=== PATIENT | female | born 1995 | race American Indian/Alaskan Native ===

== ENCOUNTER 2017-12-24 10:22 | Emergency (ER) | payer SELFPAY ==
[2017-12-24 12:52] LABS: Bacteria,Urine 2+ /HPF (Negative); Bilirubin,Urine NEG (Negative); Blood,Urine NEG (Negative); Color,Urine Yellow (Yellow); Mucus,Urine FEW /HPF; Nitrite,Urine NEG (Negative); Protein,Urine <15 mg/dL mg/dL (Negative); Urobilinogen,Urine < 2.0 mg/dL (<2.0)
--- NOTE | 2017-12-24 15:53 | Emergency Department Report ---
ED General Adult HPI - General Chief complaint: Back Pain/Injury Stated complaint: LOW BACK PAIN Time Seen by Provider: 12/24/17 15:47 Source: patient Mode of arrival: Ambulatory Limitations: No Limitations - History of Present Illness Initial comments: Patient's 22-year-old -Polish female 17 weeks presents for right flank pain with mild dysuria past 3-4 days there is no abdominal pain and cramping or vaginal bleeding no vaginal discharge no rash or lesions no open sores no nausea vomiting no fever or chills. 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 ) Treatments Prior to Arrival: none - Related Data Previous Rx's Medication Instructions Recorded Last Taken Type Acetaminophen 650 mg PO QID PRN #60 tablet 12/24/17 Unknown Rx Cephalexin [Keflex] 500 mg PO BID #14 capsule 12/24/17 Unknown Rx Allergies Allergy/AdvReac Type Severity Reaction Status Date / Time No Known Allergies Allergy Unverified 12/24/17 11:03 ED Review of Systems ROS: Stated complaint: LOW BACK PAIN Other details as noted in HPI Constitutional: denies: chills, fever Eyes: denies: eye pain, eye discharge, vision change ENT: denies: ear pain, throat pain Respiratory: denies: cough, shortness of breath, wheezing Cardiovascular: denies: chest pain, palpitations Endocrine: no symptoms reported Gastrointestinal: denies: abdominal pain, nausea, diarrhea Genitourinary: denies: urgency, dysuria, frequency, hematuria, discharge, abnormal menses, dyspareunia Musculoskeletal: back pain. denies: joint swelling, arthralgia Skin: denies: rash, lesions Neurological: denies: headache, weakness, paresthesias Psychiatric: denies: anxiety, depression Hematological/Lymphatic: denies: easy bleeding, easy bruising ED Past Medical Hx - Past Medical History Previous Medical History?: Yes - Surgical History Past Surgical History?: No - Social History Smoking Status: Never Smoker Substance Use Type: Prescribed - Medications Home Medications: Home Medications Medication Instructions Recorded Confirmed Last Taken Type Acetaminophen 650 mg PO QID PRN #60 tablet 12/24/17 Unknown Rx Cephalexin [Keflex] 500 mg PO BID #14 capsule 12/24/17 Unknown Rx ED Physical Exam - General Limitations: No Limitations General appearance: alert, in no apparent distress - Head Head exam: Present: atraumatic, normocephalic - Eye Eye exam: Present: normal appearance - ENT ENT exam: Present: mucous membranes moist - Neck Neck exam: Present: normal inspection, full ROM. Absent: lymphadenopathy, thyromegaly - Respiratory Respiratory exam: Present: normal lung sounds bilaterally. Absent: respiratory distress, wheezes, rales, rhonchi, chest wall tenderness - Cardiovascular Cardiovascular Exam: Present: regular rate, normal rhythm. Absent: systolic murmur, diastolic murmur, rubs, gallop - GI/Abdominal GI/Abdominal exam: Present: soft, normal bowel sounds. Absent: distended, tenderness, guarding, rebound, rigid, organomegaly, mass, bruit, pulsatile mass , hernia - Rectal Rectal exam: Present: deferred - Extremities Exam Extremities exam: Present: normal inspection, full ROM, normal capillary refill. Absent: tenderness, pedal edema, joint swelling, calf tenderness - Back Exam Back exam: Present: normal inspection, full ROM, CVA tenderness (R). Absent: CVA tenderness (L), muscle spasm, paraspinal tenderness, vertebral tenderness, rash noted - Neurological Exam Neurological exam: Present: alert, oriented X3, CN II-XII intact, normal gait, reflexes normal. Absent: motor sensory deficit - Psychiatric Psychiatric exam: Present: normal affect, normal mood - Skin Skin exam: Present: warm, dry, intact, normal color. Absent: rash ED Course Vital Signs 12/24/17 11:03 Temperature 98.5 F Pulse Rate 62 Respiratory 18 Rate Blood Pressure 121/85 O2 Sat by Pulse 94 Oximetry ED Medical Decision Making - Lab Data Laboratory Tests 12/24/17 12:13 Urine Color Yellow Urine Turbidity Clear Urine pH 7.0 Ur Specific [place] 1.015 Urine Protein <15 mg/dl Urine Glucose (UA) Neg Urine Ketones Tr Urine Blood Neg Urine Nitrite Neg Urine Bilirubin Neg Urine Urobilinogen < 2.0 Ur Leukocyte Esterase Lg Urine WBC (Auto) 10.0 H Urine RBC (Auto) 3.0 U Epithel Cells (Auto) 46.0 H Urine Bacteria (Auto) 2+ Urine Mucus Few - Medical Decision Making UA positive leukocytes white blood cells no blood mild right CVA tenderness patient denies vaginal discharge no bleeding no abdominal pain or cramping no nausea vomiting plan treat for UTI Keflex by mouth twice a day for 7 days follow with PUBLIC HEALTH TEACHER in 5 days as scheduled return to ED if abdominal pain cramping or worsening symptoms patient hasn't verbalized understanding and agreeable with discharge plan is to DC to home in stable condition at this time. Critical care attestation.: If time is entered above; I have spent that time in minutes in the direct care of this critically ill patient, excluding procedure time. ED Disposition Clinical Impression: UTI (urinary tract infection) during Qualifiers: Trimester: second trimester Qualified Code(s): O23.42 - Unspecified infection of urinary tract in , second trimester Disposition: DC-01 TO HOME OR SELFCARE Is pt being admited?: No Does the pt Need Aspirin: No Condition: Good Instructions: Urinary Tract Infection in Women (ED) Prescriptions: Acetaminophen 650 mg PO QID PRN #60 tablet PRN Reason: Pain Cephalexin [Keflex] 500 mg PO BID #14 capsule Referrals: LIVE MACHUCA MD [Primary Care Provider] - 3-5 Days Forms: Work/School Release Form(ED) Time of Disposition: 15:55
[2017-12-24 16:27] VITALS: BP 120/76
== END 2017-12-24 16:26 | disposition home or self-care (01) ==
LOC: ED 10:22
DX: O23.42 Unspecified infection of urinary tract in pregnancy, second trimester (principal); Z3A.17 17 weeks gestation of pregnancy
CPT/HCPCS: 81001; 99283

== ENCOUNTER 2018-05-13 01:13 | Outpatient (CLI) | payer BC ==
[2018-05-13 01:33] VITALS: BP 121/77
[2018-05-13] MEDS ORDERED: VISTARIL PO PRN (02:01)
== END 2018-05-13 02:15 | disposition home or self-care (01) ==
LOC: TRG 01:13
PROVIDERS: ATTEND Obstetrics & Gynecology
DX: O26.893 Other specified pregnancy related conditions, third trimester (principal); Z3A.39 39 weeks gestation of pregnancy
CPT/HCPCS: 59025

== ENCOUNTER 2018-05-19 09:57 | Inpatient (IN) | payer BC ==
[2018-05-19] MEDS ORDERED: LACTATED RINGERS 1,000 ML IV ONE (11:19)
[2018-05-19] MEDS ORDERED: BRETHINE SUB-Q PRN (12:36)
[2018-05-19] MEDS ORDERED: SUBLIMAZE IV PRN (12:36)
[2018-05-19] MEDS ORDERED: ZOFRAN IV PRN (12:36)
[2018-05-19] MEDS ORDERED: MINERAL OIL PO PRN (12:36)
[2018-05-19] MEDS ORDERED: XYLOCAINE 2% INFILTRATI ONE (12:36)
[2018-05-19] MEDS ORDERED: ePHEDrine SULFATE IV PRN (12:36)
[2018-05-19] MEDS ORDERED: POLYCILLIN/NS 2 GM/100 ML 2 GM/100 ML BAG IV ONE (12:40)
--- NOTE | 2018-05-19 12:48 | History and Physical Report ---
History of Present Illness Date of examination: 05/19/18 (pt presented to [facility] with c/o low back pain and DFM) History of present illness: EDC Confirmation: 05/20/2018 Gestational Age: 13 3/7 weeks Past History : 2 Term Births: 0 Premature Births: 0 Living Children: 0 Para: 0 Mult. Births: 0 Prev : 0 Prev. attempt? 0 Aborta: 1 Elect. Ab: 0 Spont. Ab: 1 Ectopics: 0 # 1 Delivery date: 03/2016 Weeks Gestation: 6 Delivery type: SAB Comments: No D&C Past Medical History: Negative Past Medical History Past Surgical History: Negative Past Surgical History Family History Summary: Other family member - Has No Family History of Ovarvian Cancer - Entered On: Other family member - Has Family History of Hypertension - Entered On: 2016 Other family member - Has Family History of Diabetes - Entered On: 11/15/2017 Other family member - Has Family History Colon Cancer - Entered On: 11/15/2017 Other family member - Has Family History Breast Cancer - Entered On: 11/15/2017 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 of genital herpes: no Partner hx. of genital herpes: no Genetic History Congenital Heart Defect: Mom: no Dad: no Giuliano Disease: Mom: no Dad: no Thalassemia Mom: no Dad: no Neural Tube Defect Mom: no Dad: no Down's Syndrome Mom: no Dad: no Jose F-Sachs Mom: no Dad: no Sickle Cell Disease/Trait Mom: no Dad: no Hemophilia Mom: no Dad: no Muscular Dystrophy Mom: no Dad: no Cystic Fibrosis Mom: no Dad: no [place] Chorea Mom: no Dad: no Mental Retardation Mom: no Dad: no Fragile X Mom: no Dad: no Other Genetic/Chromosomal Disorder Mom: no Dad: no Child w/other defect Mom: no Dad: no Active Medications (reviewed today): None Current Allergies (reviewed today): No known allergies Past History - Obstetrical History Expected Date of Delivery: 05/20/18 Actual Gestation: 39 Week(s) 6 Day(s) : 2 Para: 0 Hx # Term Pregnancies: 0 Number of Pregnancies: 0 Spontaneous Abortions: 1 Induced : 0 Number of Living Children: 0 Medications and Allergies Allergies Allergy/AdvReac Type Severity Reaction Status Date / Time No Known Allergies Allergy Unverified 12/24/17 11:03 Home Medications Medication Instructions Recorded Confirmed Last Taken Type Cephalexin [Keflex] 500 mg PO BID #14 capsule 12/24/17 Unknown Rx RX: Acetaminophen 650 mg PO QID PRN #60 tablet 12/24/17 Unknown Rx - Vital Signs Vital signs: Vital Signs Pulse Pulse Ox 75 99 05/19/18 10:34 05/19/18 10:34 Temp Pulse Resp BP Pulse Ox 75 119/79 100 05/19/18 12:44 05/19/18 10:35 05/19/18 12:44 - Physical Exam Breasts: Positive: deferred Cardiovascular: Regular rate, Normal S1, Normal S2 Lungs: Positive: Normal air movement Abdomen: Positive: normal appearance, soft, normal bowel sounds. Negative: distention, tenderness Genitourinary (Female): Positive: normal external genitalia Vulva: both: normal Vagina: Positive: normal moisture. Negative: discharge Cervix: Negative: lesion, discharge Uterus: Positive: normal size, normal contour Adnexa: both: normal Anus/Rectum: Positive: normal perianal skin, heme negative. Negative: rectal mass, hemorrhoids Extremities: Positive: normal Deep Tendon Reflex Grade: Normal +2 - Obstetrical FHR: category 1 Uterine Contraction Monitor Mode: External Cervical Dilatation: 1 (per evaluator transfer students) Cervical Effacement Percentage: 60 station: -3 Uterine Contraction Pattern: Irregular Uterine Tone Measurement Phase: Resting Uterine Contraction Intensity: Mild Results All other labs normal. Laboratory Data-Patient Name: ISAIAH SANDERS Test Date Result Blood Type 10/02/2017 O Rh 10/02/2017 positive Antibody Screen negative Rubella 10/02/2017 IMMUNE Serology (RPR) 12/06/2017 NR HBsAg 12/06/2017 Negative Hemoglobin 02/13/2018 10.8 Hematocrit 02/13/2018 32.9 Platelets 10/02/2017 281 Chlamydia DNA 11/15/2017 Negative GC DNA/Culture 11/15/2017 Urine Culture Group B Strep cult positive PAP HIV 10/02/2017 Negative AFP/Quad Screen Glucola Test 3hr GTT (Fasting) 1 hr 2 hr 3 hr [facility]-Patient Name:ISAIAH SANDERS Test Date Result Varicella Ab Sickle Cell 10/02/2017 negative PPD Fibronectin Cystic Fibrosis Parvovirus TSH Free T4 Hepatitis C ALT AST Uric Acid Creatinine 24 hr Urine Protein [place] Assessment and Plan - Patient Problems (1) Group B Streptococcus carrier state affecting Onset Date: ~05/19/18 Current Visit: Yes Status: Acute Plan to address problem: GBS+ Pt voices NKDA Will tx per protocol with ampicillin. (2) Oligohydramnios Onset Date: ~05/19/18 Current Visit: Yes Status: Acute Qualifiers: Fetus number: single or unspecified fetus Trimester: third trimester Qualified Code(s): O41.03X0 - Oligohydramnios, third trimester, not applicable or unspecified Plan to address problem: Pt c/o DFM on arrival to Triage and some variable decels were noted JUANITO and BPP prdered. JUANITO 5.4 and BPP 6/8 Will admit for augmentation (3) 39 weeks gestation of Onset Date: ~05/19/18 Current Visit: Yes Status: Acute Plan to address problem: 22yo @ 39w6d DC 05-20-18. Admitted from Triage with BPP 6/8 off for breathing and JUANITO 5.4. GBS+ Will order low dose pitocin for today and place cervidil tonight after PM care. notified of pt and admission.
[2018-05-19] MEDS ORDERED: PITOCin/NS 20 UNIT/1000ML DRIP 20 UNITS/1,000 ML BAG IV SCH (13:00)
[2018-05-19] MEDS ORDERED: PITOCin/NS 30 UNIT/500ML 30 UNITS/500 ML BAG IV SCH (13:00)
--- NOTE | 2018-05-19 13:22 | Ultrasound Report ---
OB LIMITED INDICATION: Decreased movement. COMPARISON: None similar at this institution. TECHNIQUE: Transabdominal grayscale ultrasound with Doppler interrogation. Gestation: [place] Position: Cephalic Amniotic Fluid: Decreased (< 7 cm) JUANITO = 5.4 cm Heart Rate: 127 BPM CONCLUSION: Oligohydramnios, as above.
--- NOTE | 2018-05-19 13:23 | Ultrasound Report ---
BIOPHYSICAL PROFILE: INDICATION: Decreased movement. COMPARISON: None similar. TECHNIQUE: Transabdominal ultrasound with Doppler interrogation. 0 - breathing movements 2 - movements 2 - posture and tone 2 - Qualitative amniotic fluid volume 6 - TOTAL SCORE OF POSSIBLE 8 Heart Rate (bpm) 138 CONCLUSION: Findings, as above.
[2018-05-19 14:05] LABS: Hematocrit 35.1 % (30.3-42.9); Hemoglobin 11.3 gm/dl (10.1-14.3); Mean Corpuscular HGB Conc 32 % (30-34); Mean Corpuscular Hemoglobin 28 pg (28-32); Mean Corpuscular Volume 88 fl (79-97); Platelet Count 232 K/mm3 (140-440); Red Blood Count 3.99 M/mm3 (3.65-5.03); Red Cell Distribution Width 15.2 % (13.2-15.2)
[2018-05-19] MEDS ORDERED: AMPICILLIN/NS 1 GM/50 ML 1 GM/50 ML BAG IV SCH (16:41)
[2018-05-19] MEDS ORDERED: CERVIDIL VG ONE (20:00)
[2018-05-19] MEDS ORDERED: AMBIEN PO PRN (22:54)
--- NOTE | 2018-05-19 22:58 | Event Note ---
Date: 05/19/18 (pt OOB to void; Cervidil out) Pt crying with ctx. Cervidil out during void. SVE 1,60,-2 Will medicate. Start low dose pit after 1 hour. Pt agrees with POC.
[2018-05-20] MEDS: LACTATED RINGERS 1,000 ML IV SCH ×2 (01:00→04:39)
[2018-05-20] MEDS ORDERED: POLYCILLIN/NS 2 GM/100 ML 2 GM/100 ML BAG IV ONE (01:03)
[2018-05-20] MEDS ORDERED: NUBAIN IV PRN (01:13)
[2018-05-20] MEDS ORDERED: ePHEDrine SULFATE IV PRN (01:13)
[2018-05-20] MEDS ORDERED: NARCAN 2 MG/2 ML IV PRN (01:13)
--- NOTE | 2018-05-20 01:17 | Anesthesia Consultation ---
Anesthesia Consult and Med Hx Date of service: 05/20/18 - Airway Anesthetic Teeth Evaluation: Good ROM Head & Neck: Adequate Mental/Hyoid Distance: Adequate Mallampati Class: Class II Intubation Access Assessment: Probably Good - Pulmonary Exam CTA: Yes - Cardiac Exam Cardiac Exam: RRR - Pre-Operative Health Status ASA Pre-Surgery Classification: ASA2 Proposed Anesthetic Plan: Epidural - Pre-Anesthesia Comment Pre-Anesthesia Comments: 22y @ 39.6wks admitted for labor - Pulmonary Hx Asthma: No COPD: No Hx Pneumonia: No - Cardiovascular System Hx Hypertension: No Hx Coronary Artery Disease: No - Central Nervous System Hx Seizures: No Hx Psychiatric Problems: No - Endocrine Hx Renal Disease: No Hx End Stage Renal Disease: No Hx Hypothyroidism: No Hx Hyperthyroidism: No - Hematic Hx Anemia: No Hx Sickle Cell Disease: No - Other Systems Hx Alcohol Use: No
[2018-05-20] MEDS ORDERED: fentaNYL-BUPIV 2 MCG/ML-0.125% 200 MCG/100 ML BAG EPIDURAL SCH (02:00)
[2018-05-20] MEDS ORDERED: PITOCin/NS 30 UNIT/500ML 30,000 MILLIUNITS/500 ML BAG IV ONE (04:34)
--- NOTE | 2018-05-20 05:26 | Progress Note ---
Assessment and Plan - Patient Problems (1) Group B Streptococcus carrier state affecting Onset Date: ~05/19/18 Current Visit: Yes Status: Acute (2) Oligohydramnios Onset Date: ~05/19/18 Current Visit: Yes Status: Acute Qualifiers: Fetus number: single or unspecified fetus Trimester: third trimester Qualified Code(s): O41.03X0 - Oligohydramnios, third trimester, not applicable or unspecified (3) 39 weeks gestation of Onset Date: ~05/19/18 Current Visit: Yes Status: Acute Subjective Date of service: 05/20/18 (pt comfortable with epidural) Principal diagnosis: IUP @ 40 weeks BPP 6/8 JUANITO 5.4; IOL Interval history: Pt resting Comfortable with epidural SVE 8,90,0 Bloody show Internal applied Minimal fluid Second dose Ampicillin infusing. Re-eval as needed. Objective - Constitutional Vitals: Vital Signs - 12hr 05/19/18 05/19/18 05/19/18 17:29 17:34 17:39 Temperature Pulse Rate 77 83 77 Respiratory Rate Blood Pressure O2 Sat by Pulse 99 99 98 Oximetry 05/19/18 05/19/18 05/19/18 17:44 17:49 17:54 Temperature Pulse Rate 88 90 75 Respiratory Rate Blood Pressure O2 Sat by Pulse 98 98 99 Oximetry 05/19/18 05/19/18 05/19/18 17:59 18:04 18:09 Temperature Pulse Rate 86 98 H 90 Respiratory Rate Blood Pressure O2 Sat by Pulse 99 98 99 Oximetry 05/19/18 05/19/18 05/19/18 18:14 18:19 18:24 Temperature Pulse Rate 86 85 78 Respiratory Rate Blood Pressure O2 Sat by Pulse 99 98 99 Oximetry 05/19/18 05/19/18 05/19/18 18:32 18:37 18:42 Temperature Pulse Rate 106 H 104 H 84 Respiratory Rate Blood Pressure O2 Sat by Pulse 100 98 98 Oximetry 05/19/18 05/19/18 05/19/18 18:47 18:52 18:57 Temperature Pulse Rate 84 90 82 Respiratory Rate Blood Pressure O2 Sat by Pulse 98 97 97 Oximetry 05/19/18 05/19/18 05/19/18 19:02 19:07 19:12 Temperature Pulse Rate 82 97 H 92 H Respiratory Rate Blood Pressure O2 Sat by Pulse 98 99 98 Oximetry 05/19/18 05/19/18 05/19/18 19:14 19:17 19:22 Temperature Pulse Rate 87 72 79 Respiratory Rate Blood Pressure 118/73 O2 Sat by Pulse 98 98 Oximetry 05/19/18 05/19/18 05/19/18 19:27 19:32 19:37 Temperature Pulse Rate 77 81 93 H Respiratory Rate Blood Pressure O2 Sat by Pulse 98 97 98 Oximetry 05/19/18 05/19/18 05/19/18 19:42 19:47 19:52 Temperature Pulse Rate 91 H 85 88 Respiratory Rate Blood Pressure O2 Sat by Pulse 98 99 99 Oximetry 05/19/18 05/19/18 05/19/18 20:02 20:07 20:12 Temperature Pulse Rate 90 85 81 Respiratory Rate Blood Pressure O2 Sat by Pulse 99 99 99 Oximetry 05/19/18 05/19/18 05/19/18 20:14 20:17 20:22 Temperature Pulse Rate 82 76 69 Respiratory Rate Blood Pressure 122/84 O2 Sat by Pulse 100 99 Oximetry 05/19/18 05/19/18 05/19/18 20:27 20:28 20:29 Temperature Pulse Rate 76 73 75 Respiratory Rate Blood Pressure 120/93 121/94 127/96 O2 Sat by Pulse 99 Oximetry 05/19/18 05/19/18 05/19/18 20:31 20:32 20:37 Temperature Pulse Rate 77 77 105 H Respiratory Rate Blood Pressure 116/76 O2 Sat by Pulse 99 99 Oximetry 05/19/18 05/19/18 05/19/18 20:42 20:47 20:52 Temperature Pulse Rate 86 80 81 Respiratory Rate Blood Pressure O2 Sat by Pulse 99 99 99 Oximetry 05/19/18 05/19/18 05/19/18 20:57 21:02 21:07 Temperature Pulse Rate 77 78 86 Respiratory Rate Blood Pressure O2 Sat by Pulse 99 98 98 Oximetry 05/19/18 05/19/18 05/19/18 21:12 21:15 21:17 Temperature Pulse Rate 69 70 78 Respiratory Rate Blood Pressure 123/80 O2 Sat by Pulse 99 98 Oximetry 05/19/18 05/19/18 05/19/18 21:22 21:27 21:32 Temperature Pulse Rate 85 75 82 Respiratory Rate Blood Pressure O2 Sat by Pulse 99 98 98 Oximetry 05/19/18 05/19/18 05/19/18 21:37 21:42 21:47 Temperature Pulse Rate 76 75 73 Respiratory Rate Blood Pressure O2 Sat by Pulse 99 97 98 Oximetry 05/19/18 05/19/18 05/19/18 21:52 21:57 22:02 Temperature Pulse Rate 76 80 81 Respiratory Rate Blood Pressure O2 Sat by Pulse 98 98 96 Oximetry 05/19/18 05/19/18 05/19/18 22:07 22:12 22:15 Temperature Pulse Rate 74 78 66 Respiratory Rate Blood Pressure 120/72 O2 Sat by Pulse 97 98 Oximetry 05/19/18 05/19/18 05/19/18 22:17 22:22 22:27 Temperature Pulse Rate 69 68 84 Respiratory Rate Blood Pressure O2 Sat by Pulse 96 96 98 Oximetry 05/19/18 05/19/18 05/19/18 22:32 22:37 22:42 Temperature Pulse Rate 77 76 72 Respiratory Rate Blood Pressure O2 Sat by Pulse 99 99 98 Oximetry 05/19/18 05/19/18 05/19/18 23:07 23:11 23:16 Temperature Pulse Rate 73 86 Respiratory 20 Rate Blood Pressure O2 Sat by Pulse 97 94 Oximetry 05/19/18 05/19/18 05/19/18 23:21 23:26 23:31 Temperature Pulse Rate 79 72 63 Respiratory Rate Blood Pressure O2 Sat by Pulse 98 97 97 Oximetry 05/19/18 05/19/18 05/19/18 23:36 23:39 23:41 Temperature Pulse Rate 63 63 58 L Respiratory Rate Blood Pressure O2 Sat by Pulse 97 93 97 Oximetry 05/19/18 05/19/18 05/19/18 23:46 23:50 23:51 Temperature Pulse Rate 62 67 78 Respiratory Rate Blood Pressure O2 Sat by Pulse 98 90 93 Oximetry 05/19/18 05/20/18 05/20/18 23:56 00:06 00:11 Temperature Pulse Rate 68 83 70 Respiratory Rate Blood Pressure O2 Sat by Pulse 97 97 98 Oximetry 05/20/18 05/20/18 05/20/18 00:16 00:21 00:26 Temperature Pulse Rate 89 60 95 H Respiratory Rate Blood Pressure O2 Sat by Pulse 95 98 99 Oximetry 05/20/18 05/20/18 05/20/18 00:31 00:36 00:37 Temperature Pulse Rate 81 83 68 Respiratory Rate Blood Pressure 144/92 O2 Sat by Pulse 100 100 Oximetry 05/20/18 05/20/18 05/20/18 00:40 00:41 00:46 Temperature Pulse Rate 63 65 72 Respiratory Rate Blood Pressure 142/91 O2 Sat by Pulse 100 100 Oximetry 05/20/18 05/20/18 05/20/18 00:51 00:56 01:01 Temperature Pulse Rate 85 97 H 91 H Respiratory Rate Blood Pressure O2 Sat by Pulse 100 100 100 Oximetry 05/20/18 05/20/18 05/20/18 01:06 01:11 01:14 Temperature Pulse Rate 82 95 H 64 Respiratory Rate Blood Pressure 174/103 O2 Sat by Pulse 100 100 Oximetry 05/20/18 05/20/18 05/20/18 01:16 01:17 01:22 Temperature Pulse Rate 55 L 75 65 Respiratory Rate Blood Pressure O2 Sat by Pulse 90 100 100 Oximetry 05/20/18 05/20/18 05/20/18 01:27 01:29 01:31 Temperature Pulse Rate 76 77 80 Respiratory Rate Blood Pressure 146/97 141/90 157/96 O2 Sat by Pulse Oximetry 05/20/18 05/20/18 05/20/18 01:33 01:35 01:37 Temperature Pulse Rate 87 69 76 Respiratory Rate Blood Pressure 140/91 123/78 136/86 O2 Sat by Pulse 99 Oximetry 05/20/18 05/20/18 05/20/18 01:38 01:39 01:41 Temperature Pulse Rate 93 H 67 85 Respiratory Rate Blood Pressure 128/74 114/63 O2 Sat by Pulse 99 Oximetry 05/20/18 05/20/18 05/20/18 01:43 01:44 01:47 Temperature Pulse Rate 67 69 69 Respiratory Rate Blood Pressure 114/68 121/78 120/75 O2 Sat by Pulse 99 Oximetry 05/20/18 05/20/18 05/20/18 01:48 01:49 01:51 Temperature Pulse Rate 72 76 76 Respiratory Rate Blood Pressure 118/80 122/83 O2 Sat by Pulse 99 Oximetry 05/20/18 05/20/18 05/20/18 01:53 01:54 01:57 Temperature Pulse Rate 78 71 63 Respiratory Rate Blood Pressure 111/68 113/70 114/70 O2 Sat by Pulse 99 Oximetry 05/20/18 05/20/18 05/20/18 01:58 01:59 02:01 Temperature Pulse Rate 73 63 66 Respiratory Rate Blood Pressure 119/74 124/80 O2 Sat by Pulse 99 Oximetry 05/20/18 05/20/18 05/20/18 02:03 02:05 02:08 Temperature Pulse Rate 64 61 64 Respiratory Rate Blood Pressure 123/81 117/74 O2 Sat by Pulse 98 99 Oximetry 05/20/18 05/20/18 05/20/18 02:13 02:15 02:18 Temperature Pulse Rate 67 80 68 Respiratory Rate Blood Pressure 119/80 O2 Sat by Pulse 99 99 Oximetry 05/20/18 05/20/18 05/20/18 02:21 02:23 02:26 Temperature Pulse Rate 65 71 75 Respiratory Rate Blood Pressure 116/78 122/79 O2 Sat by Pulse 100 Oximetry 05/20/18 05/20/18 05/20/18 02:28 02:30 02:33 Temperature Pulse Rate 82 87 73 Respiratory Rate Blood Pressure 113/72 O2 Sat by Pulse 99 100 Oximetry 05/20/18 05/20/18 05/20/18 02:36 02:38 02:42 Temperature Pulse Rate 62 68 65 Respiratory Rate Blood Pressure 111/75 112/76 O2 Sat by Pulse 99 Oximetry 05/20/18 05/20/18 05/20/18 02:43 02:45 02:48 Temperature Pulse Rate 69 72 67 Respiratory Rate Blood Pressure 111/73 O2 Sat by Pulse 99 100 Oximetry 05/20/18 05/20/18 05/20/18 02:53 02:58 03:01 Temperature Pulse Rate 68 67 65 Respiratory Rate Blood Pressure 113/74 O2 Sat by Pulse 99 100 Oximetry 05/20/18 05/20/18 05/20/18 03:03 03:08 03:13 Temperature Pulse Rate 67 62 78 Respiratory Rate Blood Pressure O2 Sat by Pulse 100 100 100 Oximetry 05/20/18 05/20/18 05/20/18 03:17 03:18 03:23 Temperature Pulse Rate 64 66 65 Respiratory Rate Blood Pressure 113/72 O2 Sat by Pulse 100 100 Oximetry 05/20/18 05/20/18 05/20/18 03:28 03:31 03:33 Temperature 97.8 F Pulse Rate 66 60 86 Respiratory 20 Rate Blood Pressure 114/73 O2 Sat by Pulse 100 100 Oximetry 05/20/18 05/20/18 05/20/18 03:38 03:43 03:48 Temperature Pulse Rate 62 64 62 Respiratory Rate Blood Pressure O2 Sat by Pulse 100 100 100 Oximetry 05/20/18 05/20/18 05/20/18 03:53 03:58 04:03 Temperature Pulse Rate 63 62 61 Respiratory Rate Blood Pressure O2 Sat by Pulse 100 100 100 Oximetry 05/20/18 05/20/18 05/20/18 04:06 04:08 04:13 Temperature Pulse Rate 64 63 78 Respiratory Rate Blood Pressure 122/78 O2 Sat by Pulse 100 100 Oximetry 05/20/18 05/20/18 05/20/18 04:18 04:23 04:28 Temperature Pulse Rate 65 64 61 Respiratory Rate Blood Pressure O2 Sat by Pulse 100 100 100 Oximetry 05/20/18 05/20/18 05/20/18 04:33 04:37 04:38 Temperature Pulse Rate 78 74 81 Respiratory Rate Blood Pressure 132/86 O2 Sat by Pulse 100 100 Oximetry 05/20/18 05/20/18 05/20/18 04:43 04:48 04:53 Temperature Pulse Rate 59 L 62 63 Respiratory Rate Blood Pressure O2 Sat by Pulse 100 100 100 Oximetry 05/20/18 05/20/18 05/20/18 04:58 05:03 05:07 Temperature Pulse Rate 66 94 H 64 Respiratory Rate Blood Pressure 145/84 O2 Sat by Pulse 100 100 Oximetry 05/20/18 05/20/18 05/20/18 05:08 05:13 05:18 Temperature Pulse Rate 64 79 70 Respiratory Rate Blood Pressure O2 Sat by Pulse 100 100 100 Oximetry 05/20/18 05:23 Temperature Pulse Rate 66 Respiratory Rate Blood Pressure O2 Sat by Pulse 100 Oximetry - Labs CBC & Chem 7: 05/19/18 13:38
--- NOTE | 2018-05-20 06:04 | Progress Note ---
Assessment and Plan Pt called out c/o pressure SVE Rim,100,+1 Anticipate delivery. - Patient Problems (1) Group B Streptococcus carrier state affecting Onset Date: ~05/19/18 Current Visit: Yes Status: Acute (2) Oligohydramnios Onset Date: ~05/19/18 Current Visit: Yes Status: Acute Qualifiers: Fetus number: single or unspecified fetus Trimester: third trimester Qualified Code(s): O41.03X0 - Oligohydramnios, third trimester, not applicable or unspecified (3) 39 weeks gestation of Onset Date: ~05/19/18 Current Visit: Yes Status: Acute Subjective - Subjective Date of service: 05/20/18 (pt c/o pressure) Principal diagnosis: IUP @ 40 weeks BPP 6/8 JUANITO 5.4; IOL Interval history: EDC Confirmation: 05/20/2018 Gestational Age: 13 3/7 weeks Past History : 2 Term Births: 0 Premature Births: 0 Living Children: 0 Para: 0 Mult. Births: 0 Prev : 0 Prev. attempt? 0 Aborta: 1 Elect. Ab: 0 Spont. Ab: 1 Ectopics: 0 # 1 Delivery date: 03/2016 Weeks Gestation: 6 Delivery type: SAB Comments: No D&C Past Medical History: Negative Past Medical History Past Surgical History: Negative Past Surgical History Family History Summary: Other family member - Has No Family History of Ovarvian Cancer - Entered On: Other family member - Has Family History of Hypertension - Entered On: 2016 Other family member - Has Family History of Diabetes - Entered On: 11/15/2017 Other family member - Has Family History Colon Cancer - Entered On: 11/15/2017 Other family member - Has Family History Breast Cancer - Entered On: 11/15/2017 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 of genital herpes: no Partner hx. of genital herpes: no Genetic History Congenital Heart Defect: Mom: no Dad: no Giuliano Disease: Mom: no Dad: no Thalassemia Mom: no Dad: no Neural Tube Defect Mom: no Dad: no Down's Syndrome Mom: no Dad: no Jose F-Sachs Mom: no Dad: no Sickle Cell Disease/Trait Mom: no Dad: no Hemophilia Mom: no Dad: no Muscular Dystrophy Mom: no Dad: no Cystic Fibrosis Mom: no Dad: no [place] Chorea Mom: no Dad: no Mental Retardation Mom: no Dad: no Fragile X Mom: no Dad: no Other Genetic/Chromosomal Disorder Mom: no Dad: no Child w/other defect Mom: no Dad: no Active Medications (reviewed today): None Current Allergies (reviewed today): No known allergies Patient reports: movement normal Objective - Vital Signs Vital Signs: Vital Signs - 12hr 05/19/18 05/19/18 05/19/18 18:04 18:09 18:14 Temperature Pulse Rate 98 H 90 86 Respiratory Rate Blood Pressure O2 Sat by Pulse 98 99 99 Oximetry 05/19/18 05/19/18 05/19/18 18:19 18:24 18:32 Temperature Pulse Rate 85 78 106 H Respiratory Rate Blood Pressure O2 Sat by Pulse 98 99 100 Oximetry 05/19/18 05/19/18 05/19/18 18:37 18:42 18:47 Temperature Pulse Rate 104 H 84 84 Respiratory Rate Blood Pressure O2 Sat by Pulse 98 98 98 Oximetry 05/19/18 05/19/18 05/19/18 18:52 18:57 19:02 Temperature Pulse Rate 90 82 82 Respiratory Rate Blood Pressure O2 Sat by Pulse 97 97 98 Oximetry 05/19/18 05/19/18 05/19/18 19:07 19:12 19:14 Temperature Pulse Rate 97 H 92 H 87 Respiratory Rate Blood Pressure 118/73 O2 Sat by Pulse 99 98 Oximetry 05/19/18 05/19/18 05/19/18 19:17 19:22 19:27 Temperature Pulse Rate 72 79 77 Respiratory Rate Blood Pressure O2 Sat by Pulse 98 98 98 Oximetry 05/19/18 05/19/18 05/19/18 19:32 19:37 19:42 Temperature Pulse Rate 81 93 H 91 H Respiratory Rate Blood Pressure O2 Sat by Pulse 97 98 98 Oximetry 05/19/18 05/19/18 05/19/18 19:47 19:52 20:02 Temperature Pulse Rate 85 88 90 Respiratory Rate Blood Pressure O2 Sat by Pulse 99 99 99 Oximetry 05/19/18 05/19/18 05/19/18 20:07 20:12 20:14 Temperature Pulse Rate 85 81 82 Respiratory Rate Blood Pressure 122/84 O2 Sat by Pulse 99 99 Oximetry 05/19/18 05/19/18 05/19/18 20:17 20:22 20:27 Temperature Pulse Rate 76 69 76 Respiratory Rate Blood Pressure 120/93 O2 Sat by Pulse 100 99 99 Oximetry 05/19/18 05/19/18 05/19/18 20:28 20:29 20:31 Temperature Pulse Rate 73 75 77 Respiratory Rate Blood Pressure 121/94 127/96 116/76 O2 Sat by Pulse Oximetry 05/19/18 05/19/18 05/19/18 20:32 20:37 20:42 Temperature Pulse Rate 77 105 H 86 Respiratory Rate Blood Pressure O2 Sat by Pulse 99 99 99 Oximetry 05/19/18 05/19/18 05/19/18 20:47 20:52 20:57 Temperature Pulse Rate 80 81 77 Respiratory Rate Blood Pressure O2 Sat by Pulse 99 99 99 Oximetry 05/19/18 05/19/18 05/19/18 21:02 21:07 21:12 Temperature Pulse Rate 78 86 69 Respiratory Rate Blood Pressure O2 Sat by Pulse 98 98 99 Oximetry 05/19/18 05/19/18 05/19/18 21:15 21:17 21:22 Temperature Pulse Rate 70 78 85 Respiratory Rate Blood Pressure 123/80 O2 Sat by Pulse 98 99 Oximetry 05/19/18 05/19/18 05/19/18 21:27 21:32 21:37 Temperature Pulse Rate 75 82 76 Respiratory Rate Blood Pressure O2 Sat by Pulse 98 98 99 Oximetry 05/19/18 05/19/18 05/19/18 21:42 21:47 21:52 Temperature Pulse Rate 75 73 76 Respiratory Rate Blood Pressure O2 Sat by Pulse 97 98 98 Oximetry 05/19/18 05/19/18 05/19/18 21:57 22:02 22:07 Temperature Pulse Rate 80 81 74 Respiratory Rate Blood Pressure O2 Sat by Pulse 98 96 97 Oximetry 05/19/18 05/19/18 05/19/18 22:12 22:15 22:17 Temperature Pulse Rate 78 66 69 Respiratory Rate Blood Pressure 120/72 O2 Sat by Pulse 98 96 Oximetry 05/19/18 05/19/18 05/19/18 22:22 22:27 22:32 Temperature Pulse Rate 68 84 77 Respiratory Rate Blood Pressure O2 Sat by Pulse 96 98 99 Oximetry 05/19/18 05/19/18 05/19/18 22:37 22:42 23:07 Temperature Pulse Rate 76 72 Respiratory 20 Rate Blood Pressure O2 Sat by Pulse 99 98 Oximetry 05/19/18 05/19/18 05/19/18 23:11 23:16 23:21 Temperature Pulse Rate 73 86 79 Respiratory Rate Blood Pressure O2 Sat by Pulse 97 94 98 Oximetry 05/19/18 05/19/18 05/19/18 23:26 23:31 23:36 Temperature Pulse Rate 72 63 63 Respiratory Rate Blood Pressure O2 Sat by Pulse 97 97 97 Oximetry 05/19/18 05/19/18 05/19/18 23:39 23:41 23:46 Temperature Pulse Rate 63 58 L 62 Respiratory Rate Blood Pressure O2 Sat by Pulse 93 97 98 Oximetry 05/19/18 05/19/18 05/19/18 23:50 23:51 23:56 Temperature Pulse Rate 67 78 68 Respiratory Rate Blood Pressure O2 Sat by Pulse 90 93 97 Oximetry 05/20/18 05/20/18 05/20/18 00:06 00:11 00:16 Temperature Pulse Rate 83 70 89 Respiratory Rate Blood Pressure O2 Sat by Pulse 97 98 95 Oximetry 05/20/18 05/20/18 05/20/18 00:21 00:26 00:31 Temperature Pulse Rate 60 95 H 81 Respiratory Rate Blood Pressure O2 Sat by Pulse 98 99 100 Oximetry 05/20/18 05/20/18 05/20/18 00:36 00:37 00:40 Temperature Pulse Rate 83 68 63 Respiratory Rate Blood Pressure 144/92 142/91 O2 Sat by Pulse 100 Oximetry 05/20/18 05/20/18 05/20/18 00:41 00:46 00:51 Temperature Pulse Rate 65 72 85 Respiratory Rate Blood Pressure O2 Sat by Pulse 100 100 100 Oximetry 05/20/18 05/20/18 05/20/18 00:56 01:01 01:06 Temperature Pulse Rate 97 H 91 H 82 Respiratory Rate Blood Pressure O2 Sat by Pulse 100 100 100 Oximetry 05/20/18 05/20/18 05/20/18 01:11 01:14 01:16 Temperature Pulse Rate 95 H 64 55 L Respiratory Rate Blood Pressure 174/103 O2 Sat by Pulse 100 90 Oximetry 05/20/18 05/20/18 05/20/18 01:17 01:22 01:27 Temperature Pulse Rate 75 65 76 Respiratory Rate Blood Pressure 146/97 O2 Sat by Pulse 100 100 Oximetry 05/20/18 05/20/18 05/20/18 01:29 01:31 01:33 Temperature Pulse Rate 77 80 87 Respiratory Rate Blood Pressure 141/90 157/96 140/91 O2 Sat by Pulse 99 Oximetry 05/20/18 05/20/18 05/20/18 01:35 01:37 01:38 Temperature Pulse Rate 69 76 93 H Respiratory Rate Blood Pressure 123/78 136/86 O2 Sat by Pulse 99 Oximetry 05/20/18 05/20/18 05/20/18 01:39 01:41 01:43 Temperature Pulse Rate 67 85 67 Respiratory Rate Blood Pressure 128/74 114/63 114/68 O2 Sat by Pulse 99 Oximetry 05/20/18 05/20/18 05/20/18 01:44 01:47 01:48 Temperature Pulse Rate 69 69 72 Respiratory Rate Blood Pressure 121/78 120/75 O2 Sat by Pulse 99 Oximetry 05/20/18 05/20/18 05/20/18 01:49 01:51 01:53 Temperature Pulse Rate 76 76 78 Respiratory Rate Blood Pressure 118/80 122/83 111/68 O2 Sat by Pulse 99 Oximetry 05/20/18 05/20/18 05/20/18 01:54 01:57 01:58 Temperature Pulse Rate 71 63 73 Respiratory Rate Blood Pressure 113/70 114/70 O2 Sat by Pulse 99 Oximetry 05/20/18 05/20/18 05/20/18 01:59 02:01 02:03 Temperature Pulse Rate 63 66 64 Respiratory Rate Blood Pressure 119/74 124/80 123/81 O2 Sat by Pulse 98 Oximetry 05/20/18 05/20/18 05/20/18 02:05 02:08 02:13 Temperature Pulse Rate 61 64 67 Respiratory Rate Blood Pressure 117/74 O2 Sat by Pulse 99 99 Oximetry 05/20/18 05/20/18 05/20/18 02:15 02:18 02:21 Temperature Pulse Rate 80 68 65 Respiratory Rate Blood Pressure 119/80 116/78 O2 Sat by Pulse 99 Oximetry 05/20/18 05/20/18 05/20/18 02:23 02:26 02:28 Temperature Pulse Rate 71 75 82 Respiratory Rate Blood Pressure 122/79 O2 Sat by Pulse 100 99 Oximetry 05/20/18 05/20/18 05/20/18 02:30 02:33 02:36 Temperature Pulse Rate 87 73 62 Respiratory Rate Blood Pressure 113/72 111/75 O2 Sat by Pulse 100 Oximetry 05/20/18 05/20/18 05/20/18 02:38 02:42 02:43 Temperature Pulse Rate 68 65 69 Respiratory Rate Blood Pressure 112/76 O2 Sat by Pulse 99 99 Oximetry 05/20/18 05/20/18 05/20/18 02:45 02:48 02:53 Temperature Pulse Rate 72 67 68 Respiratory Rate Blood Pressure 111/73 O2 Sat by Pulse 100 99 Oximetry 05/20/18 05/20/18 05/20/18 02:58 03:01 03:03 Temperature Pulse Rate 67 65 67 Respiratory Rate Blood Pressure 113/74 O2 Sat by Pulse 100 100 Oximetry 05/20/18 05/20/18 05/20/18 03:08 03:13 03:17 Temperature Pulse Rate 62 78 64 Respiratory Rate Blood Pressure 113/72 O2 Sat by Pulse 100 100 Oximetry 05/20/18 05/20/18 05/20/18 03:18 03:23 03:28 Temperature Pulse Rate 66 65 66 Respiratory Rate Blood Pressure O2 Sat by Pulse 100 100 100 Oximetry 05/20/18 05/20/18 05/20/18 03:31 03:33 03:38 Temperature 97.8 F Pulse Rate 60 86 62 Respiratory 20 Rate Blood Pressure 114/73 O2 Sat by Pulse 100 100 Oximetry 05/20/18 05/20/18 05/20/18 03:43 03:48 03:53 Temperature Pulse Rate 64 62 63 Respiratory Rate Blood Pressure O2 Sat by Pulse 100 100 100 Oximetry 05/20/18 05/20/18 05/20/18 03:58 04:03 04:06 Temperature Pulse Rate 62 61 64 Respiratory Rate Blood Pressure 122/78 O2 Sat by Pulse 100 100 Oximetry 05/20/18 05/20/18 05/20/18 04:08 04:13 04:18 Temperature Pulse Rate 63 78 65 Respiratory Rate Blood Pressure O2 Sat by Pulse 100 100 100 Oximetry 05/20/18 05/20/18 05/20/18 04:23 04:28 04:33 Temperature Pulse Rate 64 61 78 Respiratory Rate Blood Pressure O2 Sat by Pulse 100 100 100 Oximetry 05/20/18 05/20/18 05/20/18 04:37 04:38 04:43 Temperature Pulse Rate 74 81 59 L Respiratory Rate Blood Pressure 132/86 O2 Sat by Pulse 100 100 Oximetry 05/20/18 05/20/18 05/20/18 04:48 04:53 04:58 Temperature Pulse Rate 62 63 66 Respiratory Rate Blood Pressure O2 Sat by Pulse 100 100 100 Oximetry 05/20/18 05/20/18 05/20/18 05:03 05:07 05:08 Temperature Pulse Rate 94 H 64 64 Respiratory Rate Blood Pressure 145/84 O2 Sat by Pulse 100 100 Oximetry 05/20/18 05/20/18 05/20/18 05:13 05:18 05:23 Temperature Pulse Rate 79 70 66 Respiratory Rate Blood Pressure O2 Sat by Pulse 100 100 100 Oximetry 05/20/18 05/20/18 05/20/18 05:28 05:33 05:38 Temperature Pulse Rate 69 62 78 Respiratory Rate Blood Pressure O2 Sat by Pulse 100 100 100 Oximetry 05/20/18 05/20/18 05/20/18 05:43 05:48 05:53 Temperature Pulse Rate 75 64 66 Respiratory Rate Blood Pressure O2 Sat by Pulse 100 100 100 Oximetry 05/20/18 05/20/18 05:58 06:03 Temperature Pulse Rate 69 80 Respiratory Rate Blood Pressure O2 Sat by Pulse 100 100 Oximetry - Exam Breasts: deferred Cardiovascular: Regular rate Lungs: Normal air movement Abdomen: Present: normal appearance, soft. Absent: distention, tenderness Uterus: Present: normal FHR: auscultation normal, category 1 Uterine Contraction Monitor Mode: Internal Cervical Dilatation: 9.5 Cervical Effacement Percentage: 100 station: +1 Uterine Contraction Pattern: Regular Uterine Contraction Intensity: Moderate Extremities: normal Deep Tendon Reflex Grade: Normal +2 - Labs Labs: Laboratory Results - last 24 hr 05/19/18 05/19/18 13:30 13:38 WBC 6.3 RBC 3.99 Hgb 11.3 Hct 35.1 MCV 88 MCH 28 MCHC 32 RDW 15.2 Plt Count 232 Blood Type O POSITIVE Antibody Screen Negative
[2018-05-20] MEDS ORDERED: PHENERGAN PO PRN (08:10)
[2018-05-20] MEDS ORDERED: TUCKS PAD TP PRN (08:10)
[2018-05-20] MEDS ORDERED: BENADRYL PO PRN (08:10)
[2018-05-20] MEDS ORDERED: TYLENOL PO PRN (08:10)
[2018-05-20] MEDS ORDERED: NORCO 5/325 PO PRN (08:10)
[2018-05-20] MEDS ORDERED: MILK OF MAGNESIA PO PRN (08:10)
[2018-05-20] MEDS ORDERED: DULCOLAX PR PRN (08:10)
[2018-05-20] MEDS ORDERED: LANSINOH TP PRN (08:10)
--- NOTE | 2018-05-20 08:20 | Procedure Note ---
OB Delivery Note - Delivery Date of Delivery: 05/20/18 Founder & Ceo: AGNLE GALLOWAY Estimated blood loss: 300cc - Vaginal Delivery presentation: vertex Delivery position: OA Intrapartum events: none Delivery induction: cervidil Delivery augmentation: pitocin Delivery monitor: internal FHT, internal uterine Route of delivery: Delivery placenta: spontaneous Delivery cord: nuchal cord, 3 umbilical vessels Episiotomy: none Delivery laceration: none Anesthesia: epidural Delivery comments: girl over intact perineum CAN X 1 del through Baby skin to skin Cord blood obtained Placenta and membrane delivered complete and intact, 3 vessel cord. 8/9, EBL 300, Wgt 6-4 Mom and baby remain LDR stable - Infant A at 1 minute: 8 at 5 minutes: 9 Gender: Female (wgt 6-4)
[2018-05-20] MEDS ORDERED: SODIUM CHLORIDE FLUSH SYRINGE 10 ML IV SCH (09:00)
[2018-05-20 09:02] LABS: Alanine Aminotransferase 8 units/L (7-56); Uric Acid 3.8 mg/dL (3.5-7.6)
[2018-05-20] MEDS: MOTRIN PO SCH ×2 (17:58→23:10)
[2018-05-20 19:48] LABS: Hematocrit 33.9 % (30.3-42.9); Hemoglobin 10.7 gm/dl (10.1-14.3)
[2018-05-20 22:27] LABS: Bilirubin,Urine NEG (Negative); Blood,Urine LG (Negative); Color,Urine Yellow (Yellow); Mucus,Urine FEW /HPF; Urobilinogen,Urine < 2.0 mg/dL (<2.0)
[2018-05-20 22:30] LABS: RBC,Urine > 182.0 /HPF (0.0-6.0)
[2018-05-21] MEDS: MOTRIN PO SCH (05:23)
[2018-05-21] MEDS ORDERED: BOOSTRIX IM ONE (06:00)
--- NOTE | 2018-05-21 06:20 | Progress Note ---
Assessment and Plan - Patient Problems (1) Spontaneous vaginal delivery Onset Date: ~05/20/18 Current Visit: Yes Status: Acute Plan to address problem: Pt is resting w/o complaint BP 140-120/90-80 Pt w/o SANTANA, blurred vision, chest pain. FF below umb Lochia small Perineum intact Doing well s/p vag delivery P: will continue pathway; cont. NB observation Monitor maternal BPs Advance as tolerated. Subjective - Subjective Date of service: 05/21/18 (Pt w/o any c/o SANTANA, blurred vision, chest pain) Principal diagnosis: Day # 1 s/p Interval history: EDC Confirmation: 05/20/2018 Gestational Age: 13 3/7 weeks Past History : 2 Term Births: 0 Premature Births: 0 Living Children: 0 Para: 0 Mult. Births: 0 Prev : 0 Prev. attempt? 0 Aborta: 1 Elect. Ab: 0 Spont. Ab: 1 Ectopics: 0 # 1 Delivery date: 03/2016 Weeks Gestation: 6 Delivery type: SAB Comments: No D&C Past Medical History: Negative Past Medical History Past Surgical History: Negative Past Surgical History Family History Summary: Other family member - Has No Family History of Ovarvian Cancer - Entered On: Other family member - Has Family History of Hypertension - Entered On: 2016 Other family member - Has Family History of Diabetes - Entered On: 11/15/2017 Other family member - Has Family History Colon Cancer - Entered On: 11/15/2017 Other family member - Has Family History Breast Cancer - Entered On: 11/15/2017 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 of genital herpes: no Partner hx. of genital herpes: no Genetic History Congenital Heart Defect: Mom: no Dad: no Giuliano Disease: Mom: no Dad: no Thalassemia Mom: no Dad: no Neural Tube Defect Mom: no Dad: no Down's Syndrome Mom: no Dad: no Jose F-Sachs Mom: no Dad: no Sickle Cell Disease/Trait Mom: no Dad: no Hemophilia Mom: no Dad: no Muscular Dystrophy Mom: no Dad: no Cystic Fibrosis Mom: no Dad: no [place] Chorea Mom: no Dad: no Mental Retardation Mom: no Dad: no Fragile X Mom: no Dad: no Other Genetic/Chromosomal Disorder Mom: no Dad: no Child w/other defect Mom: no Dad: no Active Medications (reviewed today): None Current Allergies (reviewed today): No known allergies Patient reports: appetite normal, voiding normally, pain well controlled, ambulating normally (pt had an episode of choking last evening) [place]: doing well Objective - Vital Signs Latest vital signs: Vital Signs Temp Pulse Resp BP BP Pulse Ox 05/21/18 04:30 98.1 F 71 18 124/87 99 05/20/18 23:50 98.2 F 70 18 130/91 99 05/20/18 16:26 98.5 F 76 16 110/75 98 05/20/18 11:42 97.7 F 66 20 138/89 99 05/20/18 10:00 98.1 F 70 18 136/92 99 05/20/18 09:31 81 151/99 05/20/18 09:16 72 146/97 05/20/18 09:01 71 144/86 05/20/18 08:46 67 148/83 05/20/18 08:31 65 138/89 05/20/18 08:16 62 133/89 05/20/18 08:01 80 141/89 05/20/18 07:36 88 132/84 05/20/18 07:23 83 92 05/20/18 07:18 80 100 05/20/18 07:13 130 H 100 05/20/18 07:08 71 100 05/20/18 07:07 72 157/96 05/20/18 07:03 74 100 05/20/18 06:58 70 100 05/20/18 06:55 98 F 72 16 142/86 100 05/20/18 06:53 70 100 05/20/18 06:48 81 100 05/20/18 06:43 84 100 05/20/18 06:38 76 100 05/20/18 06:36 64 132/91 05/20/18 06:33 65 100 05/20/18 06:28 64 100 05/20/18 06:23 66 100 05/20/18 06:18 73 100 Intake and Output 05/20/18 05/20/18 05/21/18 14:59 22:59 06:59 Intake Total 120 120 Output Total 700 400 Balance -580 -280 Intake: Oral 120 120 Output: Urine 700 400 Void 700 400 Other: Total, Intake Amount 120 120 Total, Output Amount 700 400 # Voids Void 1 1 Estimated Blood Loss 300 - Exam Breasts: Present: normal Cardiovascular: Present: Regular rate Lungs: Present: Normal air movement Abdomen: Present: normal appearance, soft, normal bowel sounds Uterus: Present: normal, fundal height below umbilicus Extremities: Present: normal Deep Tendon Reflex Grade: Normal +2 Incision: Present: normal, dry, intact - Labs Labs: Abnormal lab results 05/20/18 05/20/18 Range/Units 08:19 21:47 Lactate Dehydrogenase 182 H (91-180) units/L Urine WBC (Auto) 18.0 H (0.0-6.0) /HPF
[2018-05-21] MEDS ORDERED: M-M-R II VACCINE SUB-Q ONE (08:10)
[2018-05-21] MEDS: PRENATAL VITAMIN PO SCH (10:05)
[2018-05-21] MEDS ORDERED: MAGNESIUM SULFATE 40GM/1000ML 40 GM/1,000 ML BAG IV SCH (18:00)
[2018-05-21] MEDS: NORMODYNE PO SCH ×2 (19:00→22:06)
[2018-05-21 19:54] LABS: Basophils % (Auto) 0.6 % (0.0-1.8); Eosinophils # (Auto) 0.1 K/mm3 (0.0-0.4); Eosinophils % (Auto) 1.6 % (0.0-4.3); Hematocrit 33.5 % (30.3-42.9); Lymphocytes # (Auto) 1.5 K/mm3 (1.2-5.4); Lymphocytes % (Auto) 19.1 % (13.4-35.0); Mean Corpuscular HGB Conc 33 % (30-34); Mean Corpuscular Hemoglobin 29 pg (28-32); Mean Corpuscular Volume 87 fl (79-97); Monocytes # (Auto) 0.7 K/mm3 (0.0-0.8); Platelet Count 205 K/mm3 (140-440); Red Blood Count 3.83 M/mm3 (3.65-5.03); Red Cell Distribution Width 15.7 % (13.2-15.2)
[2018-05-21 20:14] LABS: Alanine Aminotransferase 11 units/L (7-56); BUN/Creatinine Ratio 11; Blood Urea Nitrogen 9 mg/dL (7-17); Calcium 9.2 mg/dL (8.4-10.2); Hemolysis Index 15
[2018-05-21] MEDS ORDERED: LACTATED RINGERS 1,000 ML ONE (20:38)
[2018-05-22] MEDS: MOTRIN PO SCH ×3 (00:28→23:12)
--- NOTE | 2018-05-22 07:42 | Progress Note ---
Assessment and Plan Patient doing well, no complaints this morning. Mag infusing @ 2gm/hr, arenas to BSB with clear yellow urine, adequate output. b/p low 100's/60-80's since starting mag sulfate last night. Patient is also on Labetalol 200mg PO. VSSAF at this time. Pt denies SANTANA/visual changes or epigastric pain. Lochia scant. Plan to continue mag sulfate until around 2100. Communication order to call with b/p before giving 10am dose of labetalol. Will continue to monitor and plan for d/c home tomorrow if stable. - Patient Problems (1) Mild pre-eclampsia Current Visit: Yes Status: Acute (2) Spontaneous vaginal delivery Onset Date: ~05/20/18 Current Visit: Yes Status: Acute Subjective - Subjective Date of service: 05/22/18 Principal diagnosis: Day # 2 s/p , mild pre-e Patient reports: appetite normal, pain well controlled, ambulating normally, no dizzy ambulation, no nauseated : doing well, nursing well (breast and bottle feeding) Objective - Vital Signs Latest vital signs: Vital Signs Temp Pulse Resp BP BP Pulse Ox 05/22/18 06:22 98.1 F 78 105/73 05/22/18 04:15 97.9 F 77 20 114/87 05/22/18 02:31 98.0 F 70 20 106/69 99 05/21/18 23:40 98.3 F 90 107/65 05/21/18 22:06 74 129/88 05/21/18 19:00 74 129/88 05/21/18 18:30 74 129/88 05/21/18 17:42 72 145/96 05/21/18 17:40 97.8 F 80 18 147/104 99 05/21/18 08:31 98.2 F 64 20 136/99 Intake and Output 05/21/18 05/21/18 05/22/18 15:59 23:59 07:59 Intake Total 1200 240 Output Total 1800 Balance 1200 -1560 Intake: Oral 1200 Intake, Free Water 240 Output: Urine 1800 Indwelling Catheter 1800 Other: Total, Intake Amount 240 Total, Output Amount 400 Voiding Method Indwelling Catheter # Voids Void 1 - Exam Breasts: Present: normal, Cardiovascular: Present: Regular rate Lungs: Present: Clear to auscultation, Normal air movement Abdomen: Present: normal appearance, soft Vulva: both: normal Uterus: Present: normal, firm, fundal height at umbilicus Extremities: Present: normal Deep Tendon Reflex Grade: Normal +2 - Labs Labs: Abnormal lab results 05/21/18 Range/Units 19:37 RDW 15.7 H (13.2-15.2) % [place] % (Auto) 9.0 H (0.0-7.3) %
[2018-05-22] MEDS: LACTATED RINGERS 1,000 ML IV SCH ×2 (09:29→22:46)
[2018-05-22] MEDS: NORMODYNE PO SCH (09:35)
[2018-05-22] MEDS ORDERED: MAGNESIUM SULFATE 40GM/1000ML 40 GM/1,000 ML BAG IV SCH (18:00)
[2018-05-23] MEDS: MOTRIN PO SCH (05:42)
[2018-05-23] MEDS: NORMODYNE PO SCH (06:45)
--- NOTE | 2018-05-23 06:58 | Discharge Summary ---
Providers - Providers Date of Admission: 05/19/18 13:10 Date of discharge: 05/23/18 (pt desires d/c) Attending physician: MARY MCCALLUM Primary care physician: EMMETT ALFREDO Hospitalization Reason for admission: active labor Delivery: Episiotomy: none Laceration: none complications: other (elevated BP; received 24hr MGSO4 therapy) Discharge diagnosis: IUP at term delivered baby: female Hospital course: uncomplicated vaginal delivery; PP course complicated by elevated BPs Pt received 24hr MGSO4 therapy; no meds at d/c F/U oziel in office for BP check one week. Pt w/o complaint VSS FF below umb Lochia small perineum intact H&H stable No s/ sx of anemia Doing well s/p vag delivery. BP normotensive. P: d/c today with instructions Pt will RTO 05-30-18 @ 1000 for BP check. Instructed to call with SANTANA, visual chges, CP. Condition at discharge: Good Disposition: DC- TO HOME OR SELFCARE - Discharge Diagnoses (1) Spontaneous vaginal delivery Status: Acute Comment: RTO 05-30-18 for BP check; then 4 weeks for PP care Plan - Discharge Medications Prescriptions: Ibuprofen [Motrin 800 MG tab] 800 mg PO TID PRN #30 tablet PRN Reason: Pain - Provider Discharge Summary Activity: routine, no sex for 6 weeks, no heavy lifting 4 weeks, no strenuous exercise Diet: other (limit salt intake) Instructions: routine Additional instructions: [] Smoking cessation referral if applicable(refer to patient education folder for contact #) [] Refer to [facility] Call your doctor immediately for: * Fever > 100.5 * Heavy vaginal bleeding ( >1 pad per hour) * Severe persistent headache * Shortness of breath * Reddened, hot, painful area to leg or breast * Drainage or odor from incision. * Keep incision clean and dry at all times and follow doctor's instructions regarding bathing/showering - Follow up plan Follow up: EMMETT ALFREDO MD [Primary Care Provider] - 05/30/18 10:00 am (Congratulations! Please keep your appointment as scheduled for blood pressure check. Call with headache, unrelieved with Tylenol, blurred vision, chest pain. Call with any concerns. [phone].)
[2018-05-23] MEDS: PRENATAL VITAMIN PO SCH (10:45)
[2018-05-23 18:09] VITALS: BP 123/83
== END 2018-05-23 18:30 | disposition home or self-care (01) | DRG 774 ==
LOC: TRG 09:57 → LD 13:10 → OB 05-20 10:01
PROVIDERS: ADMIT Obstetrics & Gynecology; ATTEND Obstetrics & Gynecology
PROC: 3E0R3BZ Introduction of Anesthetic Agent into Spinal Canal, Percutaneous Approach (ICD-10-PCS; principal; 2018-05-20)
PROC: 10E0XZZ Delivery of Products of Conception, External Approach (ICD-10-PCS; 2018-05-20)
PROC: 00HU33Z Insertion of Infusion Device into Spinal Canal, Percutaneous Approach (ICD-10-PCS; 2018-05-20)
PROC: 3E0P7VZ Introduction of Hormone into Female Reproductive, Via Natural or Artificial Opening (ICD-10-PCS; 2018-05-20)
PROC: 3E0234Z Introduction of Serum, Toxoid and Vaccine into Muscle, Percutaneous Approach (ICD-10-PCS; 2018-05-21)
DX: O41.03X0 Oligohydramnios, third trimester, not applicable or unspecified (principal); O14.05 Mild to moderate pre-eclampsia, complicating the puerperium; Z37.0 Single live birth; O99.824 Streptococcus B carrier state complicating childbirth; Z3A.39 39 weeks gestation of pregnancy; O69.81X0 Labor and delivery complicated by cord around neck, without compression, not applicable or unspecified; Z23 Encounter for immunization
CPT/HCPCS: 36415; 76815; 76819; 80048; 81001; 82565; 83615; 83735; 84450; 84460; 84550; 85014; 85018; 85025; 85027; 86592; 86850; 86900; 86901; 90715; 99211; A6250; G0463; J0290; J2590; J3475; J7120